=== PATIENT | male | born 1960 | race Hispanic/Latino ===

== ENCOUNTER 2019-08-20 06:29 | Emergency (ER) | payer OTHER ==
[2019-08-20 07:28] LABS: Protime INR 1.04
[2019-08-20 07:29] LABS: Absolute Lymphocytes (CBC) 1.7 K/uL (0.7-4.9); Basophils % 0.5 % (0-1.3); Hematocrit 41.9 % (39.6-49.0); Lymphocytes % 17.1 % (15.3-44.8)
[2019-08-20 07:41] LABS: ALT/SGPT 41 U/L (12-78); AST/SGOT 27 U/L (15-37); Albumin 3.9 g/dL (3.4-5.0); Alkaline Phosphatase 89 U/L (45-117); BUN Blood Urea Nitrogen 11 mg/dL (7-18); Bicarbonate 25 mmol/L (21-32); Bilirubin Direct 0.2 mg/dL (0-0.2); Bilirubin Total 0.4 mg/dL (0.2-1.0); Glucose Level 115 mg/dL (74-106); Magnesium 1.8 mg/dL (1.8-2.4); NT PRO-BNP 56 pg/mL (<125); Potassium 3.7 mmol/L (3.5-5.1); Protein, Total 7.2 g/dL (6.4-8.2); Sodium Level 137 mmol/L (136-145); Troponin (Emerg Dept Use Only) < 0.02 ng/mL (0.0-0.045)
--- NOTE | 2019-08-20 08:20 | RAD REPORT ---
EXAM DESCRIPTION: Hanna Single View08/20/2019 6:59 am CLINICAL HISTORY: Chest pain COMPARISON: none FINDINGS: The lungs appear clear of acute infiltrate. The heart is normal size IMPRESSION: No acute abnormalities displayed
--- NOTE | 2019-08-20 09:32 | ER ---
Nurse's Notes [facility] Name: Stacey Willis Age: 59 yrs Sex: Male : 1960 Arrival Date: 08/20/2019 Time: 06:31 Bed 5 Private MD: Diagnosis: Chest pain, unspecified Presentation: 08/20 06:47 Presenting complaint: Patient states: Reports he started having chest pain, dizziness, ea nausea , SOB and jaw pain since last Thursday. Pt reports Thursday he went to the doctor where he had labs drawn and was prescribed ranitidine and escitalopram. Transition of care: patient was not received from another setting of care. Onset of symptoms was August 20, 2019. Risk Assessment: Do you want to hurt yourself or someone else? Patient reports no desire to harm self or others. Initial Sepsis Screen: Does the patient meet any 2 criteria? No. Patient's initial sepsis screen is negative. Does the patient have a suspected source of infection? No. Patient's initial sepsis screen is negative. Care prior to arrival: None. 06:47 Method Of Arrival: Ambulatory ea 06:47 Acuity: SWATHI 3 ea Triage Assessment: 06:56 General: Appears uncomfortable, Behavior is calm, cooperative, appropriate for age. ea Pain: Complains of pain in chest. Neuro: Level of Consciousness is awake, alert, obeys commands, Oriented to person, place, time, situation. Cardiovascular: Patient's skin is warm and dry. Respiratory: Airway is patent Respiratory effort is even, unlabored, Respiratory pattern is regular, symmetrical. Derm: Skin is pink, warm \\T\\ dry. Historical: - Allergies: 06:55 No Known Allergies; ea - Home Meds: 06:55 Nexium Oral [Active]; Ranitidine Oral [Active]; escitalopram oxalate oral oral [Active];ea - PMHx: 06:55 None; ea - PSHx: 06:55 None; ea - Immunization history:: Adult Immunizations up to date. - Social history:: Smoking status: Patient/guardian denies using tobacco. - Ebola Screening: : No symptoms or risks identified at this time. Screenin:54 Abuse screen: Denies threats or abuse. Nutritional screening: No deficits noted. ea Tuberculosis screening: No symptoms or risk factors identified. Fall Risk None identified. 07:18 The patient has not been NPO before screening. The patient is currently on the jl7 following diet: Regular The patient is alert, able to follow commands. The patient does not exhibit slurred or garbled speech The patient is not exhibiting difficulty speaking. The patient does not exhibit difficulty understanding words. The patient is able to swallow own secretions with no drooling or need for suction. Patient tolerated one teaspoon of water. No drooling, immediate coughing, gurgling, or clearing of the throat was noted. The patient tolerated 90mL of water. No drooling, immediate coughing, gurgling, or clearing of the throat was noted. The patient passed the bedside swallow screening. Oral medications may be given as ordered. Contact Physician for further diet orders. Provider notified of bedside swallow screening results: Rob PALENCIA. Assessment: 07:18 General: Appears in no apparent distress. uncomfortable, Behavior is calm, cooperative, jl7 appropriate for age. Pain: Complains of pain in mid-sternal area Pain radiates to anterior aspect of left upper chest Pain currently is 5 out of 10 on a pain scale. Quality of pain is described as pressure, Pain began Last Thursday Is continuous. Neuro: Level of Consciousness is awake, alert, obeys commands, Oriented to person, place, time, situation, Manager Rn Case are equal bilaterally Moves all extremities. Full function Speech is normal, Facial symmetry appears normal, Reports dizziness, since Last Thursday weakness in right arm since Last Thursday. Cardiovascular: Heart tones S1 S2 present Patient's skin is warm and dry. Rhythm is sinus tachycardia. Respiratory: Airway is patent Respiratory effort is even, unlabored, Respiratory pattern is regular, symmetrical, Breath sounds are clear bilaterally. GI: Abdomen is round non-distended, Bowel sounds present X 4 quads. Reports nausea. : No signs and/or symptoms were reported regarding the genitourinary system. EENT: No signs and/or symptoms were reported regarding the EENT system. Derm: Skin is pink, warm \\T\\ dry. Musculoskeletal: No signs and/or symptoms reported regarding the musculoskeletal system. 08:00 Reassessment: Patient appears in no apparent distress at this time. No changes from jl7 previously documented assessment. Patient and/or family updated on plan of care and expected duration. Pain level reassessed. Patient is alert, oriented x 3, equal unlabored respirations, skin warm/dry/pink. 09:05 Reassessment: Pt, pointing to his groin, states "It feels like a ball coming out jl7 sometimes." ERP notified and at bedside. Vital Signs: 06:50 BP 167 / 84; Pulse 108; Resp 18; Temp 97.2; Pulse Ox 98% on R/A; Weight 76.2 kg; Height ea 5 ft. 6 in. (167.64 cm); 07:18 BP 150 / 80; Pulse 101; Resp 16 S; Temp 98.1(O); Pulse Ox 98% on R/A; Pain 5/10; jl7 08:43 BP 148 / 94; Pulse 98; Resp 16 S; Pulse Ox 98% on R/A; jl7 09:29 BP 142 / 82; Pulse 93; Resp 16 S; Pulse Ox 99% on R/A; jl7 06:50 Body Mass Index 27.12 (76.20 kg, 167.64 cm) ea ED Course: 06:31 Patient arrived in ED. ag3 06:45 Rob Mendez PA is PHCP. jr8 06:45 Chucky Carrizales MD is Attending Physician. jr8 06:46 Rob Mendez PA is PHCP. jr8 06:46 Chucky Carrizales MD is Attending Physician. jr8 06:50 Triage completed. ea 06:56 Arm band placed on right wrist. Patient placed in an exam room, on a stretcher, on ea pulse oximetry. 06:56 Patient has correct armband on for positive identification. Placed in gown. Bed in low ea position. Call light in reach. Side rails up X 1. nuclear monitoring technician on. Pulse ox on. NIBP on. 06:56 Patient maintains SpO2 saturation greater than 95% on room air. ea 06:58 XRAY Chest (1 view) In Process Unspecified. EDMS 07:10 Missed attempt(s): 20 gauge in right forearm. Bleeding controlled, band aid applied, jl7 catheter tip intact. 07:15 Initial lab(s) drawn, by me, sent to lab. Inserted saline lock: 20 gauge in right jl7 antecubital area, using aseptic technique. Blood collected. 07:16 Mari Singleton RN is Primary Nurse. jl7 09:10 Repeat lab(s) drawn. by ms, sent to lab. jl7 09:40 No provider procedures requiring assistance completed. IV discontinued, intact, jl7 bleeding controlled, No redness/swelling at site. Pressure dressing applied. Administered Medications: No medications were administered Outcome: :31 Discharge ordered by . allen 09:40 Discharged to home ambulatory. 09:40 Condition: stable 09:40 Discharge instructions given to patient, Instructed on discharge instructions, follow up and referral plans. medication usage, Demonstrated understanding of instructions, follow-up care, medications, Prescriptions given X 1. 09:41 Patient left the ED. jl7 Signatures: Dispatcher [employer] EDMS Rob Mendez PA PA jrMari Shaffer RN RN Jessica Martinez, RN RN Clarita Cobos ag3
--- NOTE | 2019-08-20 09:32 | EDPHYS ---
Physician Documentation [facility] Name: Stacey Willis Age: 59 yrs Sex: Male : 1960 Arrival Date: 08/20/2019 Time: 06:31 Bed 5 Private MD: ED Physician Chucky Carrizales HPI: 08/20 06:46 This 59 yrs old Male presents to ER via Unassigned with complaints of Chest Pain, jr8 Nausea. 06:46 Onset: The symptoms/episode began/occurred this morning. The patient has been recently jr8 seen by a physician: 5 day(s) ago. This morning patient was walking back from bathroom and had an uncomfortable feeling in chest, became nauseous, diaphoretic, and felt the need to sit down like he was getting weak. Pt was recently seen my PCP who prescribed medications for GERD and escitalopram for sleep. Pt denies chest pain at this time. . Historical: - Allergies: 06:55 No Known Allergies; ea - Home Meds: 06:55 Nexium Oral [Active]; Ranitidine Oral [Active]; escitalopram oxalate oral oral [Active];ea - PMHx: 06:55 None; ea - PSHx: 06:55 None; ea - Immunization history:: Adult Immunizations up to date. - Social history:: Smoking status: Patient/guardian denies using tobacco. - Ebola Screening: : No symptoms or risks identified at this time. ROS: 06:49 Constitutional: Negative for fever, chills, and weight loss, Eyes: Negative for injury, jr8 pain, redness, and discharge, ENT: Negative for injury, pain, and discharge, Neck: Negative for injury, pain, and swelling, Cardiovascular: Negative for chest pain, palpitations, and edema, Respiratory: Negative for shortness of breath, cough, wheezing, and pleuritic chest pain, Abdomen/GI: Negative for abdominal pain, nausea, vomiting, diarrhea, and constipation, Back: Negative for injury and pain, MS/Extremity: Negative for injury and deformity, Neuro: Negative for headache, weakness, numbness, tingling, and seizure, Psych: Negative for depression, anxiety, suicide ideation, homicidal ideation, and hallucinations. Exam: 06:49 Constitutional: This is a well developed, well nourished patient who is awake, alert, jr8 and in no acute distress. Head/Face: Normocephalic, atraumatic. Eyes: Pupils equal round and reactive to light, extra-ocular motions intact. Lids and lashes normal. Conjunctiva and sclera are non-icteric and not injected. Cornea within normal limits. Periorbital areas with no swelling, redness, or edema. ENT: Nares patent. No nasal discharge, no septal abnormalities noted. Tympanic membranes are normal and external auditory canals are clear. Oropharynx with no redness, swelling, or masses, exudates, or evidence of obstruction, uvula midline. Mucous membranes moist. Neck: Trachea midline, no thyromegaly or masses palpated, and no cervical lymphadenopathy. Supple, full range of motion without nuchal rigidity, or vertebral point tenderness. No Meningismus. Chest/axilla: Normal chest wall appearance and motion. Nontender with no deformity. No lesions are appreciated. Cardiovascular: Regular rate and rhythm with a normal S1 and S2. No gallops, murmurs, or rubs. Normal PMI, no JVD. No pulse deficits. Respiratory: Lungs have equal breath sounds bilaterally, clear to auscultation and percussion. No rales, rhonchi or wheezes noted. No increased work of breathing, no retractions or nasal flaring. Abdomen/GI: Soft, non-tender, with normal bowel sounds. No distension or tympany. No guarding or rebound. No evidence of tenderness throughout. Back: No spinal tenderness. No costovertebral tenderness. Full range of motion. MS/ Extremity: Pulses equal, no cyanosis. Neurovascular intact. Full, normal range of motion. Neuro: Awake and alert, GCS 15, oriented to person, place, time, and situation. Cranial nerves II-XII grossly intact. Motor strength 5/5 in all extremities. Sensory grossly intact. Cerebellar exam normal. Normal gait. 06:49 Cardiovascular: Pulses: no pulse deficits are appreciated, Heart sounds: normal, normal S1and S2, Edema: is not appreciated, JVD: is not appreciated. 06:49 Respiratory: Exam negative for acute changes, decreased breath sounds, respiratory distress, shortness of breath, the patient does not display signs of respiratory distress, Respirations: normal, Breath sounds: are clear throughout. 06:49 Abdomen/GI: Inspection: abdomen appears normal. 06:49 Neuro: Cranial nerves: CN II- XII are normal as tested, extraocular movements are intact, Nystagmus is absent. Speech is clear and appropriate. Tongue strength is normal, Cerebellar function: is grossly normal, normal finger to nose testing. 06:52 ECG was reviewed by the Attending Physician. jr8 Vital Signs: 06:50 BP 167 / 84; Pulse 108; Resp 18; Temp 97.2; Pulse Ox 98% on R/A; Weight 76.2 kg; Height ea 5 ft. 6 in. (167.64 cm); 07:18 BP 150 / 80; Pulse 101; Resp 16 S; Temp 98.1(O); Pulse Ox 98% on R/A; Pain 5/10; jl7 08:43 BP 148 / 94; Pulse 98; Resp 16 S; Pulse Ox 98% on R/A; jl7 09:29 BP 142 / 82; Pulse 93; Resp 16 S; Pulse Ox 99% on R/A; jl7 06:50 Body Mass Index 27.12 (76.20 kg, 167.64 cm) ea MDM: 06:45 Patient medically screened. 8 09:28 HEART Score: History: Slightly Suspicious (0), ECG: Normal (0), Age: > 45 and < 65 jr8 years (1), Risk Factors: 1 or 2 risk factors (1), Troponin: < or = 1 x Normal Limit (0), Total Score = 2. Data reviewed: vital signs, nurses notes, lab test result(s), EKG, radiologic studies, and as a result, I will discharge patient. Data interpreted: Pulse oximetry: on room air is 98 %. Interpretation: normal. Counseling: I had a detailed discussion with the patient and/or guardian regarding: the historical points, exam findings, and any diagnostic results supporting the discharge/admit diagnosis, the presence of at least one elevated blood pressure reading (>120/80) during this emergency department visit, lab results, radiology results, the need for outpatient follow up, a family practitioner. ED course: Pt pain free in ED, has had two negative troponins, ECG WNL. Extensive discussion regarding need for FU and strict return precautions given . 08/20 06:45 Order name: Basic Metabolic Panel; Complete Time: 07:43 aa1 08/20 06:45 Order name: CBC with Diff; Complete Time: 07:36 aa1 28 06:45 Order name: LFT's; Complete Time: 07:43 08/20 06:45 Order name: Magnesium; Complete Time: 07:43 08/20 06:45 Order name: NT PRO-BNP; Complete Time: 07:43 08/20 06:45 Order name: PT-INR; Complete Time: 07:36 08/20 06:45 Order name: Troponin (emerg Dept Use Only); Complete Time: 07:43 08/20 06:45 Order name: XRAY Chest (1 view); Complete Time: 08:31 08/20 06:45 Order name: EKG; Complete Time: 06:46 08/20 06:45 Order name: Cardiac monitoring; Complete Time: 06:59 08/20 06:45 Order name: EKG - Nurse/Tech; Complete Time: 06:59 08/20 06:45 Order name: IV Saline Lock; Complete Time: 07:17 08/20 06:45 Order name: Labs collected and sent; Complete Time: 07:08/20 08:55 Order name: Troponin (emerg Dept Use Only); Complete Time: 09:28 jr8 08/20 06:45 Order name: O2 Per Protocol; Complete Time: 07:08/20 06:45 Order name: O2 Sat Monitoring; Complete Time: 07:05 EC:52 Rate is 105 beats/min. Rhythm is regular. QRS [place] is Normal. CT interval is normal at jr8 136 msec. QRS interval is normal at 90 msec. QT interval is normal at 352 msec. No Q waves. T waves are Normal. No ST changes noted. Clinical impression: Normal ECG. Interpreted by me. Reviewed by me. Administered Medications: No medications were administered Disposition: 08/20/19 09:31 Discharged to Home. Impression: Chest pain, unspecified. - Condition is Stable. - Discharge Instructions: Nonspecific Chest Pain, Aspirin and Your Heart. - Prescriptions for Hydroxyzine HCl 50 mg Oral Tablet - take 1 tablet by ORAL route every 8 hours As needed; 20 tablet. - Work release form, Medication Reconciliation Form, Thank You Letter form. - Follow up: Private Physician; When: 2 - 3 days; Reason: Recheck today's complaints, Continuance of care, Re-evaluation by your physician. - Problem is new. - Symptoms have improved. Addendum: 08/23/2019 14:50 Co-signature as Attending Physician, Chucky Carrizales MD. g s Signatures: Dispatcher [employer] EDSwati Deleon RN RN aa1 Rob Mendez PA PA jr8 Mari Singleton RN RN jl7 Jessica Zaldivar RN RN ea Starr, Gregory, MD MD gs Corrections: (The following items were deleted from the chart) 08/20 09:41 09:31 08/20/2019 09:31 Discharged to Home. Impression: Chest pain, unspecified. jl7 Condition is Stable. Forms are Medication Reconciliation Form, Thank You Letter, Antibiotic Education, Prescription Opioid Use. Follow up: Private Physician; When: 2 - 3 days; Reason: Recheck today's complaints, Continuance of care, Re-evaluation by your physician. Problem is new. Symptoms have improved. jr8
[2019-08-20 09:47] VITALS: TEMP 98.1
[2019-08-20 09:50] VITALS: BP 142/82; O2SAT 99
--- NOTE | 2019-08-21 09:05 | EKG ---
Test Date: 2019-08-20 Test Time: 06:49:36 Lamp Cleaner: KRISTOFER MEASUREMENT RESULTS: Intervals: Rate: 105 NV: 136 QRSD: 90 QT: 352 QTc: 465 [place]: P: 53 NV: 136 QRS: 62 T: 55 INTERPRETIVE STATEMENTS: Sinus tachycardia Otherwise normal ECG No previous ECG available for comparison Electronically Signed On 08-21-19 09:04:54 CDT by Scar Robbins
== END 2019-08-20 09:41 | disposition home or self-care (01) ==
LOC: ER 06:29
DX: R07.9 Chest pain, unspecified (principal)
CPT/HCPCS: 36415; 71045; 80048; 80076; 83735; 83880; 84484; 85025; 85610; 93005; 99285

== ENCOUNTER 2019-10-10 08:38 | Day surgery (SDC) | payer OTHER ==
--- OUTSIDE RECORDS SUMMARY | 2019-10-10 08:40 | XMS REPORT ---
:1960 [facility] Address [address] [place] [address] [address] [place] [address] Care Team Providers Name Role Phone Unavailable Unavailable Unavailable Problems This patient has no known problems. Allergies, Adverse Reactions, Alerts This patient has no known allergies or adverse reactions. Medications This patient has no known medications.
[2019-10-10 09:06] LABS: Absolute Lymphocytes (CBC) 2.1 K/uL (0.7-4.9); Basophils % 0.7 % (0-1.3); Hematocrit 49.6 % (39.6-49.0); Lymphocytes % 30.8 % (15.3-44.8); MPV 8.3 fL (7.6-11.3)
[2019-10-10] MEDS ORDERED: Ringers Lactate 1,000 ML IV ONE ×2 (09:15→12:31)
[2019-10-10] MEDS ORDERED: CEFAZOLIN/SWI 1gm 1 GM/10 ML SYR ONE (09:15)
[2019-10-10 09:28] LABS: BUN Blood Urea Nitrogen 12 mg/dL (7-18); Bicarbonate 30 mmol/L (21-32); Glucose Level 103 mg/dL (74-106); Potassium 4.5 mmol/L (3.5-5.1); Sodium Level 140 mmol/L (136-145)
[2019-10-10] MEDS: BUPIVACAINE 0.5% PF 10 ML VIAL ONE ×2 (09:47→11:23)
[2019-10-10] MEDS ORDERED: FENTANYL CITR 100 MCG/2 ML ONE (09:52)
[2019-10-10] MEDS ORDERED: MIDAZOLAM HCL 2 MG/2 ML INJ ONE (09:52)
[2019-10-10] MEDS ORDERED: ROCURONIUM 50 MG/5 ML VIAL IV ONE (09:52)
[2019-10-10] MEDS ORDERED: LIDOCAINE 2% MPF 5 ML VIAL ONE (09:52)
[2019-10-10] MEDS ORDERED: PROPOFOL 200 MG/20 ML VIAL IV ONE (09:52)
--- NOTE | 2019-10-10 09:52 | RAD REPORT ---
EXAM DESCRIPTION: RAD - Chest Pa And Lat (2 Views) - 10/10/2019 8:36 am CLINICAL HISTORY: preop, pending hernia repair COMPARISON: July 2019 TECHNIQUE: PA and lateral views of the chest were obtained. FINDINGS: The lungs are clear of a peripheral mass or consolidation. Interstitial pattern is promine nt but stable. Heart size is normal and central vasculature is within normal limits. No pleural ef fusion or pneumothorax seen. No acute bony finding noted. No aortic abnormality. IMPRESSION: No acute cardiopulmonary process. Interstitial pattern matches comparison.
[2019-10-10] MEDS ORDERED: ONDANSETRON 4 MG/2 ML VIAL ONE ×2 (09:57→15:26)
--- NOTE | 2019-10-10 10:22 | EKG ---
Test Date: 2019-10-10 Test Time: 08:26:10 Art Handler: ROJELIO MEASUREMENT RESULTS: Intervals: Rate: 71 RI: 138 QRSD: 96 QT: 392 QTc: 425 [place]: P: 43 RI: 138 QRS: 38 T: 40 INTERPRETIVE STATEMENTS: Normal sinus rhythm Normal ECG Compared to ECG 08/20/2019 06:49:36 Sinus tachycardia no longer present Electronically Signed On 10-10-19 10:21:41 ANGULAR JS DEVELOPER by Scar Robbins
[2019-10-10] MEDS ORDERED: Phenylephrine HCl 10 MG/ML 1 ML VIAL ONE (12:05)
[2019-10-10] MEDS ORDERED: NS 0.9% VIAL 20 ML ONE (12:06)
[2019-10-10] MEDS ORDERED: GLYCOPYRROLATE 0.2 MG/ML SYR ONE (12:14)
[2019-10-10] MEDS ORDERED: NEOSTIGMINE 1 MG/ML -5 ML ONE (12:15)
[2019-10-10] MEDS: HYDROMORPHONE HCL 1 MG/ML INJ ONE ×4 (12:46→13:28)
[2019-10-10] MEDS ORDERED: HYDROCODONE/APAP 7.5/325 MG TAB ONE (14:04)
[2019-10-10] MEDS ORDERED: HYDROCODONE/APAP 7.5/325 MG TAB PO ONE (14:13)
[2019-10-10] MEDS ORDERED: ONDANSETRON 4 MG/2 ML VIAL IV ONE (15:28)
[2019-10-10 16:30] VITALS: BP 118/62; TEMP 98; O2SAT 97
--- NOTE | 2019-10-10 22:02 | OP ---
Date of Procedure: 10/10/2019 Surgeon: Reji Murguia MD Sequins Stringer: SARA Lopze. Preoperative Diagnosis: Left inguinal hernia. Preoperative Diagnosis: Left inguinal hernia. Procedure: Repair of left inguinal hernia. Estimated Blood Loss: Minimal. Specimen: Hernia sac. Findings: As above. Anesthesia: None. Complications: None. Disposition: The patient tolerated the procedure in stable condition, taken to Recovery in good gene ral condition Procedure In Detail: The patient was brought to the OR and placed in supine position, placed in the supine position. General anesthesia was begun. Patient was prepped and draped in the usual sterile fashion. Marcaine 0.5% was infiltrated in the left groin in a field block fashion. Then 15 blade wa s used to make a 4 cm oblique incision between the pubic tubercle and the anterior iliac and superior spine. Subcutaneous tissue was divided. Kyaw's fascia was identified and divided. Aponeurosis w as identified and mobilized inferiorly to expose shelving edge and then opened through the external r ing. Ilioinguinal nerve identified and retracted out of the field of dissection. Cord mobilized and then skeletonized. Large direct hernia present, part of it was removed with a high ligation with 2- 0 Prolene, suture ligature, and free hand tie and the remainder of it was reduced. The preperitoneal fat was reduced into the peritoneal cavity and the inguinal floor was reconstructed with 2-0 Prolene starting at the pubic tubercle and joined the conjoined tendon to the shelving edge and creating a n ew internal ring and then a Marlex mesh plug was placed in the internal ring secured with VersaTack s tapler. On-lay mesh placed on the inguinal floor, secured medially to the pubic tubercle, superior t o the conjoined tendon, inferior to the shelving edge, laterally to each other. Then cord structures and inguinal nerve placed back in anatomic location. 2-0 Prolene used to close the aponeurosis, 3-0 chromic used to reapproximate the Kyaw's fascia, and 3-0 chromic also used to close the skin. Sj ri-Strips applied. Patient was awakened and taken to Recovery in good general condition. Discharge Note: The patient will go to Day-Surgery, then home when stable. Disposition: Home. Condition: Stable. Discharge Instructions: Resume home medications and diet. Activity as tolerated. No heavy lifting. Remove outer dressing in 2 days. Shower. Keep wound clean and dry. Keep Steri-Strips on at all t imes. Follow up in my office in 1 week. Call for appointment. Tylenol No. 3 one tablet p.o. q.4 p. r.n. pain. Scrotal support and ice pack as ordered. NIYAH/HÉCTOR Voice ID: [id number] Report ID: [id number]
== END 2019-10-10 16:05 | disposition home or self-care (01) ==
LOC: OR 08:38
PROVIDERS: ATTEND Surgery
PROC: 0YU60JZ Supplement Left Inguinal Region with Synthetic Substitute, Open Approach (ICD-10-PCS; principal; 2019-10-10 11:15)
DX: K40.90 Unilateral inguinal hernia, without obstruction or gangrene, not specified as recurrent (principal); K21.9 Gastro-esophageal reflux disease without esophagitis; F32.9 Major depressive disorder, single episode, unspecified
CPT/HCPCS: 93005; 85025; 80048; 36415; 88302; 71046; 49505; J2704; J2370; J2250; J3010; J1170 ×2; J2710; J0690; J7120 ×2; J2405 ×3